=== PATIENT | female | born 1990 | race Two or more races ===

== ENCOUNTER 2017-10-08 19:17 | Emergency (ER) | payer OTHER ==
[~2017-10-08] VITALS: Ht 157.5 cm; Wt 59.0 kg
--- NOTE | 2017-10-08 19:30 | NUR ---
PT PRESENTS W/ ANXIETY ATTACK, RR 30, HR 110'S. PT UNABLE TO ANSWER QUESTIONS. FRIEND AT BEDSIDE, STATES SHE HAS A HX OF ANXIETY AND PANIC ATTACKS. UNABLE TO OBTAIN FURTHER HISTORY AT THIS TIME.
--- NOTE | 2017-10-08 20:01 | NUR ---
LAB AT BEDSIDE FOR BLOOD DRAW.
[2017-10-08 20:09] LABS: BASOPHILS % (AUTO) 0.5 % (0.0-2.0); EOSINOPHILS # (AUTO) 0.1 K/uL (0.0-0.7); EOSINOPHILS % (AUTO) 1.4 % (0.0-7.0); HEMATOCRIT 40.9 % (31.2-41.9); HEMOGLOBIN 14.2 g/dL (10.9-14.3); LYMPHOCYTES # (AUTO) 2.5 K/uL (20.0-40.0); LYMPHOCYTES % (AUTO) 37.5 % (20.5-51.5); MEAN CORPUSCULAR HEMOGLOBIN 30.3 uug (24.7-32.8); MEAN CORPUSCULAR HGB CONC 35 g/dL (32.3-35.6); MEAN CORPUSCULAR VOLUME 86.9 fL (75.5-95.3); MONOCYTES # (AUTO) 0.4 K/uL (2.0-10.0); MONOCYTES % (AUTO) 5.9 % (0.0-11.0); NEUTROPHILS # (AUTO) 3.6 K/uL (1.8-8.9); NEUTROPHILS % (AUTO) 54.7 % (38.5-71.5); PLATELET COUNT (AUTO) 242 K/uL (179-408); WHITE BLOOD COUNT (AUTO) 6.6 K/uL (3.8-11.8)
[2017-10-08 20:18] LABS: POTASSIUM 3.5 mmol/L (3.5-5.1)
--- NOTE | 2017-10-08 20:45 | NUR ---
Patient discharged to home in stable conditon. Written and verbal after care instructions given. Patient verbalizes understanding of instructions. Pt ambulated from ER w/ steady gait, accompanied by friend. No acute distress noted. Pt took all personal belongings.
[2017-10-08 20:49] VITALS: BP 122/72
== END 2017-10-08 20:52 | disposition home or self-care (01) ==
LOC: ER 19:18
DX: F41.0 Panic disorder [episodic paroxysmal anxiety] (principal); R07.89 Other chest pain; R06.4 Hyperventilation
CPT/HCPCS: 36415; 84703; 85025; 93005; A4663

== ENCOUNTER 2018-10-28 17:31 | Emergency (ER) | payer OTHER ==
[~2018-10-28] VITALS: Ht 157.5 cm; Wt 59.0 kg
[2018-10-28] MEDS ORDERED: ONDANSETRON 4 MG/2 ML VIAL IM ONE (17:45)
[2018-10-28] MEDS ORDERED: HYDROMORPHONE 1 MG/1 ML DISP.SYRIN IM ONE (17:45)
[2018-10-28] MEDS ORDERED: HYDROMORPHONE 1 MG/1 ML DISP.SYRIN ONE (17:51)
[2018-10-28] MEDS ORDERED: ONDANSETRON 4 MG/2 ML VIAL ONE (17:51)
--- NOTE | 2018-10-28 18:03 | NUR ---
Patient discharged to home in stable conditon & steady gait. Written and verbal after care instructions given to patient and pt's friend. Patient and friend verbalized understanding & compliance of instructions. Patient's friend said that she will drive this patient home.
== END 2018-10-28 18:06 | disposition home or self-care (01) ==
LOC: ER 17:31
DX: M25.551 Pain in right hip (principal); M70.61 Trochanteric bursitis, right hip; Y93.89 Activity, other specified
CPT/HCPCS: 73502; 96372 ×2; 99283; J1170; J2405; A4663

== ENCOUNTER 2023-01-01 17:33 | Emergency (ER) | payer OTHER ==
[~2023-01-01] VITALS: Ht 157.5 cm; Wt 55.3 kg
[2023-01-01 18:18] VITALS: BP 122/70; TEMP 98
[2023-01-01 18:40] VITALS: O2SAT 98
== END 2023-01-01 18:18 | disposition home or self-care (01) ==
LOC: ER 17:33
DX: R07.89 Other chest pain (principal)
CPT/HCPCS: 71045; 93005; A4663

== ENCOUNTER 2023-11-08 19:21 | Emergency (ER) | payer OTHER ==
[~2023-11-08] VITALS: Ht 162.6 cm; Wt 53.1 kg
[2023-11-08 20:05] LABS: *BILIRUBIN,URIN NEGATIVE (NEGATIVE); *BLOOD, URINE 2+ (NEGATIVE); *CLARITY,URINE CLEAR (CLEAR); *COLOR,URINE YELLOW (YELLOW); *KETONES,URINE NEGATIVE (NEGATIVE); *PROTEIN,URINE TRACE (NEGATIVE); *UROBILINOGEN,URINE 0.2 E.U./dl (NORMAL); LEUKOCYTE ESTERASE ,URINE TRACE (NEGATIVE); NITRITE, URINE NEGATIVE (NEGATIVE); PH,URINE 6.5 (5.0-8.0); UGLUCOSE TRACE (NEGATIVE)
[2023-11-08] MEDS ORDERED: CEPH500C2 PO (21:40)
[2023-11-08] MEDS: CEphaleXIN 500 MG CAPSULE PO ONE (21:41)
[2023-11-08] MEDS ORDERED: CEphaleXIN 500 MG CAPSULE ONE (21:46)
[2023-11-08] MEDS: NAPROXEN 500 MG TABLET PO ONE (21:49)
[2023-11-08] MEDS ORDERED: NAPROXEN 500 MG TABLET ONE (21:50)
[2023-11-08 22:50] LABS: BACTERIA,URINE FEW /HPF (NONE SEEN); SQUAMOUS EPITHELIAL CELL,UR FEW /HPF (NONE SEEN)
[2023-11-08 22:55] VITALS: BP 118/68; TEMP 98; O2SAT 98
== END 2023-11-08 22:55 | disposition home or self-care (01) ==
LOC: ER 19:25
DX: N39.0 Urinary tract infection, site not specified (principal); R05.9 Cough, unspecified; R07.89 Other chest pain
CPT/HCPCS: 71045; A4606; A4663